=== PATIENT | male | born 1990 | race Two or more races ===

== ENCOUNTER 2022-12-28 10:04 | Emergency (ER) | payer BC ==
[~2022-12-28] VITALS: Ht 165.1 cm; Wt 63.5 kg
--- NOTE | 2022-12-28 10:18 | NUR ---
"My knee has been swollen x2wks worse now Hard to walk-Painful" pain 10/10 on pain scale
[2022-12-28] MEDS ORDERED: KETOROLAC TROMETHAMINE INJ 30 MG/ML VIAL IV ONE (10:30)
[2022-12-28] MEDS ORDERED: KETOROLAC TROMETHAMINE INJ 30 MG/ML VIAL ONE (10:34)
--- NOTE | 2022-12-28 10:41 | NUR ---
X RAY AT BEDSIDE
--- NOTE | 2022-12-28 10:47 | NUR ---
IV ESTABLISHED R AC 20G. LABS DRAWN AND COLLECTED AT BEDSIDE
[2022-12-28 10:59] LABS: BASOPHILS # (AUTO) 0.1 K/uL (0.0-0.2); BASOPHILS % (AUTO) 0.6 % (0.0-2.0); EOSINOPHILS % (AUTO) 0.2 % (0.0-6.0); HEMATOCRIT 41 % (39-51); HEMOGLOBIN 13.7 g/dL (13.5-17.5); LYMPHOCYTES # (AUTO) 1.1 K/uL (0.8-4.8); MEAN CORPUSCULAR HGB CONC 33 g/dl (31.0-36.0); MEAN CORPUSCULAR VOLUME 84 fL (80-96); MONOCYTES # (AUTO) 0.8 K/uL (0.1-1.30); MONOCYTES % (AUTO) 6.6 % (2.0-12.0); NEUTROPHILS # (AUTO) 10.2 K/uL (1.8-8.9); NEUTROPHILS % (AUTO) 83.6 % (43.0-81.0); PLATELET COUNT (AUTO) 260 K/uL (150-450); RED BLOOD CELL COUNT(AUTO) 4.87 MIL/uL (4.5-6.0); WHITE BLOOD COUNT (AUTO) 12.2 K/uL (4.3-11.0)
[2022-12-28 11:12] LABS: CALCIUM, SERUM 8.7 mg/dL (8.5-10.1); CREATININE 0.7 mg/dL (0.6-1.3)
[2022-12-28] MEDS ORDERED: INSULIN REGULAR, HUMAN 100 UNIT/ML 10 ML VIAL ONE (11:27)
[2022-12-28] MEDS ORDERED: IV NS 0.9% 1,000 ML IV ONE (11:30)
[2022-12-28] MEDS ORDERED: INSULIN REGULAR, HUMAN 100 UNIT/ML 10 ML VIAL SQ ONE (11:30)
[2022-12-28] MEDS ORDERED: METF-440 PO (13:05)
[2022-12-28] MEDS ORDERED: NAPR-1164 PO (13:05)
[2022-12-28 13:14] VITALS: BP 113/77
--- NOTE | 2022-12-28 13:14 | NUR ---
IV removed. Catheter intact and site benign. Pressure and 4x4 applied to site. No bleeding noted.Patient discharged to home in stable condition. Written and verbal after care instructions given. Patient verbalizes understanding of instruction.
[2022-12-28 13:44] LABS: C-REACTIVE PROTEIN 22.9 mg/dL (0.0-0.9)
--- NOTE | 2023-01-10 11:01 | NUR ---
ADDENDUM: STARTED 1000ML NORMAL SALINE ON 12/28/22 AT 1132 ON THE R AC 20G. NORMAL SALINE ENDED AT 1232. PT TOLERATED FLUIDS WELL.
== END 2022-12-28 13:15 | disposition home or self-care (01) ==
LOC: ER 10:04
DX: M25.462 Effusion, left knee (principal); E11.9 Type 2 diabetes mellitus without complications; Z79.899 Other long term (current) drug therapy
CPT/HCPCS: 99284; 96374; 96361; 73564; 85025; 80048; 85652; 36415; 86140; 96372; J1815; J1885; J7030

== ENCOUNTER 2022-12-29 20:53 | Inpatient (IN) | payer BC ==
[~2022-12-29] VITALS: Ht 165.1 cm; Wt 81.6 kg
[~2022-12-29 20:53] MED LIST: METF-440 PO; NAPR-1164 PO
--- NOTE | 2022-12-29 22:50 | NUR ---
DR FARHAT SIBLEY AT PT'S BEDSIDE
--- NOTE | 2022-12-29 22:50 | NUR ---
PT IN BED 12 TOLORATING ROOM AIR 98% A/O X4. C/O WORSENING LEFT KNEE PAIN WAS SEEN YESTERDAY FOR SAME CONDTION PT CLAIMS THE PAIN HAS GOTTEN WORSE AND Rx MEDS NOT RELIEVING PAIN. BED LOCKED IN LOWEST POSTION PARTER AT BEDSIDE. CONNECTED TO BEDSIDE MONITOR.
[2022-12-29 23:36] LABS: BASOPHILS % (AUTO) 0.1 % (0.0-2.0); EOSINOPHILS % (AUTO) 0.1 % (0.0-6.0); HEMATOCRIT 43 % (39-51); LYMPHOCYTES # (AUTO) 1.2 K/uL (0.8-4.8); MEAN CORPUSCULAR HGB CONC 32 g/dl (31.0-36.0); MEAN CORPUSCULAR VOLUME 88 fL (80-96); MONOCYTES # (AUTO) 1.2 K/uL (0.1-1.30); MONOCYTES % (AUTO) 7.9 % (2.0-12.0); NEUTROPHILS % (AUTO) 83.9 % (43.0-81.0); PLATELET COUNT (AUTO) 274 K/uL (150-450); RED BLOOD CELL COUNT(AUTO) 4.92 MIL/uL (4.5-6.0); WHITE BLOOD COUNT (AUTO) 15.5 K/uL (4.3-11.0)
[2022-12-30 00:06] LABS: CALCIUM, SERUM 9.7 mg/dL (8.5-10.1); CREATININE 0.6 mg/dL (0.6-1.3)
--- NOTE | 2022-12-30 01:00 | NUR ---
IV LFA #18G S/L; PATENT AND INTACT
--- NOTE | 2022-12-30 01:00 | NUR ---
COVID ANTIGEN SWAB COLLECTED AND SENT TO LAB
--- NOTE | 2022-12-30 01:08 | NUR ---
DR FARHAT SIBLEY AT PT'S BEDSIDE FOR L KNEE ARTHROSIS; PT SIGNED CONSENT FORM
--- NOTE | 2022-12-30 01:20 | NUR ---
L KNEE BODY FLUID DROPPED OFF TO LAB BY RN
[2022-12-30] MEDS ORDERED: IV NS 0.9% 1,000 ML BAG IV ONE (01:30)
--- NOTE | 2022-12-30 01:40 | NUR ---
CASEWORK SUPERVISOR AT PT'S BEDSIDE
[2022-12-30 02:04] LABS: ALANINE AMINOTRANSFERASE 23 U/L (12-78); ALKALINE PHOSPHATASE 150 U/L (46-116); ASPARTATE AMINOTRANSFERASE 23 U/L (15-37); BILIRUBIN,DIRECT 0.1 mg/dL (0.0-0.2); BILIRUBIN,TOTAL 0.5 mg/dL (0.2-1.0); TOTAL PROTEIN, SERUM 7.8 g/dL (6.4-8.2)
[2022-12-30 02:18] LABS: ALBUMIN 2.6 g/dL (3.4-5.0)
[2022-12-30] MEDS ORDERED: ONDANSETRON HCL/PF 4 MG/2 ML VIAL IVP PRN (02:30)
[2022-12-30] MEDS ORDERED: MAGNESIUM HYDROXIDE 30 ML UDC PO PRN (02:30)
[2022-12-30] MEDS ORDERED: DEXTROSE 50%-WATER 50 ML DISP.SYRIN IV PRN (02:30)
[2022-12-30] MEDS ORDERED: Z GUARD REMEDY 4 OZ OINT TP PRN (02:30)
[2022-12-30] MEDS ORDERED: MAG HYDROX/AL HYDROX/SIMETH 30 ML UDC PO PRN (02:30)
[2022-12-30] MEDS ORDERED: TEMAZEPAM 15 MG CAPSULE PO PRN (02:30)
[2022-12-30] MEDS ORDERED: MORPHINE SULFATE INJ 2 MG/ML DISP.SYRIN IV PRN (02:30)
[2022-12-30 05:34] LABS: BILIRUBIN,URINE NEGATIVE (NEGATIVE); COLOR,URINE YELLOW (YELLOW); LEUKOCYTE ESTERASE ,URINE NEGATIVE (NEGATIVE); NITRITE, URINE NEGATIVE (NEGATIVE); PH,URINE 5.5 (5.0-8.0); PROTEIN,URINE 1+ mg/dl (NEGATIVE); UGLUCOSE 2+ mg/dL (NEGATIVE); UROBILINOGEN,URINE 0.2 EU/dL (0.2)
[2022-12-30 05:38] LABS: BACTERIA,URINE Rare /HPF (None Seen); HYALINE CASTS, URINE Few /LPF (None Seen); RBC,URINE 0-2 /HPF (0-2); SQUAMOUS EPITHELIAL CELL,UR Few /HPF (None Seen); WBC,URINE 0-2 /HPF (0-3)
--- NOTE | 2022-12-30 07:45 | NUR ---
Patient AOx4 able to express his concerns. Discussed plan of care with patient, verbalized agreement. Patient with no signs of distress or discomfort.
--- NOTE | 2022-12-30 07:48 | NUR ---
BED ASSIGNED 323-1
--- NOTE | 2022-12-30 08:09 | NUR ---
Report given to Isaias RN/3 Noé. Patient clear to go to room 323
--- NOTE | 2022-12-30 08:45 | NUR ---
Patient received via [employer] Patient is A/O x4, breathing evenly and unlabored on RA. No signs of distress noted. Vitals: BP-129/86; HR-116; RR-20; T-98.6; SPO2-100. Patient described having pain only when left leg is moved. Skin assessment performed: Patient has patches of thick, red skin with silvery scales on various parts of the body but mostly on upper and lower extremities. 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 Patient revealed hx of Psoriasis and being treated regularly elsewhere. Patient has LFA IV line #18G., C/D/I. Patient was oriented to room and how to use call light. Safety measures put in placed, will continue to monitor the patient for JOHN.
--- NOTE | 2022-12-30 09:06 | NUR ---
WOUND CARE CONSULT: PT PRESENTS WITH PSORIASIS AND LEFT KNEE SWELLING, PRESENT ON ADMISSION. NO OPEN WOUNDS NOTED. DEFER TO PMD FOR POSSIBLE ORTHO CONSULT. WILL SEE PRN.
[2022-12-30] MEDS: PANTOPRAZOLE 40 MG VIAL IV SCH (09:16)
[2022-12-30] MEDS: BLOOD SUGAR DIAGNOSTIC 1 EACH STRIP IN SCH ×4 (09:28→23:00)
[2022-12-30] MEDS: INSULIN REGULAR, HUMAN 100 UNIT/ML 3 ML VIAL SQ PRN ×4 (10:18→23:01)
[2022-12-30] MEDS: VANCOMYCIN 1.25 GM in IV D5W 250 ML IV SCH ×2 (10:32→17:15)
[2022-12-30] MEDS: IV NS 0.9% 1,000 ML IV PRN (10:50)
[2022-12-30 14:19] LABS: ALBUMIN 2.2 g/dL (3.4-5.0); BILIRUBIN,TOTAL 0.7 mg/dL (0.2-1.0); CALCIUM, SERUM 8.8 mg/dL (8.5-10.1); CREATININE 0.5 mg/dL (0.6-1.3); POTASSIUM 3.9 mmol/L (3.5-5.1); TOTAL PROTEIN, SERUM 7.6 g/dL (6.4-8.2)
[2022-12-30] MEDS: ACETAMINOPHEN 325 MG TABLET PO PRN (14:30)
[2022-12-30 16:00] VITALS: BP 137/92
--- NOTE | 2022-12-30 18:44 | NUR ---
MS RN CLOSING NOTES PATIENT IN BED AWAKE A/O X 4. VERBALLY RESPONSIVE, ON ROOM AIR, BREATHING EVENLY AND UNLABORED, NO S/S OF DISTRESS AT THIS TIME. DENIES PAIN OR DISCOMFORT AT THIS TIME. FAMILY ON BEDSIDE. ALL DUE MEDICATIONS GIVEN ORDERED. ALL NEEDS MET. IV ACCESS AT LFA #18G SL, C/D/I. IVF AT 75ML/HR (PRN). SAFETY PROTOCOL IN PLACED AT ALL TIMES. WILL BE ENDORSED TO PM NURSE FOR JOHN.
--- NOTE | 2022-12-30 19:20 | NUR ---
RN Opening Notes Received pt in bed, awake, with visitors at bedside. AOx4, able to make needs known. On RA and tolerating well. No SOB noted. No s/sx of respiratory distress noted. IV access in LFA #18G running NS @ 75 mL/hr. Safety precautions in place: bed in lowest, locked position, siderails upX2, and brakes on. Table and call light within reach. All needs met at this time.
[2022-12-30] MEDS: HYDROCODONE/APAP 5/325MG TABLET PO PRN (19:24)
--- NOTE | 2022-12-30 19:24 | NUR ---
RN Notes Patient complaining of 8/10 pain but requests [place]. VS WNL.
[2022-12-30 20:00] VITALS: BP 138/88
[2022-12-30] MEDS: CEFTRIAXONE 1 G in IV D5W 50 ML IV SCH (20:07)
[2022-12-31] MEDS: VANCOMYCIN 1.25 GM in IV D5W 250 ML IV SCH ×3 (01:09→17:02)
[2022-12-31 06:10] LABS: BASOPHILS % (AUTO) 0.2 % (0.0-2.0); EOSINOPHILS % (AUTO) 0.2 % (0.0-6.0); HEMATOCRIT 38 % (39-51); HEMOGLOBIN 12.7 g/dL (13.5-17.5); LYMPHOCYTES # (AUTO) 0.9 K/uL (0.8-4.8); LYMPHOCYTES % (AUTO) 7.6 % (20.0-44.0); MEAN CORPUSCULAR HGB CONC 33 g/dl (31.0-36.0); MEAN CORPUSCULAR VOLUME 85 fL (80-96); MONOCYTES # (AUTO) 1.1 K/uL (0.1-1.30); MONOCYTES % (AUTO) 8.8 % (2.0-12.0); NEUTROPHILS # (AUTO) 10.2 K/uL (1.8-8.9); NEUTROPHILS % (AUTO) 83.2 % (43.0-81.0); PLATELET COUNT (AUTO) 244 K/uL (150-450); WHITE BLOOD COUNT (AUTO) 12.3 K/uL (4.3-11.0)
[2022-12-31 06:28] LABS: CALCIUM, SERUM 8.5 mg/dL (8.5-10.1); CREATININE 0.4 mg/dL (0.6-1.3); MAGNESIUM 1.8 mg/dL (1.8-2.4); POTASSIUM 3.4 mmol/L (3.5-5.1)
[2022-12-31] MEDS: BLOOD SUGAR DIAGNOSTIC 1 EACH STRIP IN SCH ×4 (06:30→21:18)
[2022-12-31] MEDS: HYDROCODONE/APAP 5/325MG TABLET PO PRN ×3 (06:30→21:08)
--- NOTE | 2022-12-31 06:30 | NUR ---
RN Notes Administered norco for pain per MD order.
[2022-12-31] MEDS: INSULIN REGULAR, HUMAN 100 UNIT/ML 3 ML VIAL SQ PRN ×4 (06:39→21:23)
--- NOTE | 2022-12-31 06:51 | NUR ---
RN Closing Notes Pt in bed, asleep, awakens to verbal stimuli. AOx4, able to make needs known. On RA and tolerating well. No SOB noted. No s/sx of respiratory distress noted. IV access in LFA #18G running NS @ 75 mL/hr. All orders carried out. All needs met. Pt kept clean and dry. Safety precautions in place: bed in lowest, locked position, siderails upX2, and brakes on. Table and call light within reach. Will endorse to oncoming shift for JOHN.
--- NOTE | 2022-12-31 07:25 | NUR ---
RN Opening Notes Received pt in bed, awake, AOx4, able to make needs known. On RA and tolerating well. No SOB noted. No s/sx of respiratory distress noted. IV access in LFA #18G running NS @ 75 mL/hr. Safety precautions in place: bed in lowest, locked position, siderails upX2, and brakes on. Table and call light within reach. All needs met at this time.
--- NOTE | 2022-12-31 07:34 | NUR ---
WOUND CARE CONSULT: RECEIVED ANOTHER CONSULT FOR SKIN CONDITION, PRESENT ON ADMISSION. PT STATES HAS PSORIASIS. DEFER TO PMD.
[2022-12-31 08:34] VITALS: BP 136/79
[2022-12-31] MEDS: PANTOPRAZOLE 40 MG VIAL IV SCH (09:21)
[2022-12-31] MEDS ORDERED: MORPHINE SULFATE INJ 4 MG/ML DISP.SYRIN IV PRN (10:00)
[2022-12-31] MEDS ORDERED: POTASSIUM CHLORIDE 20 MEQ TAB.PRT.SR PO ONE (10:00)
[2022-12-31] MEDS: IV NS 0.9% 1,000 ML IV PRN (10:39)
[2022-12-31] MEDS ORDERED: NEUTRA PHOS 1 POWD.PACKET PO ONE (11:00)
[2022-12-31 16:12] VITALS: BP 149/93
[2022-12-31] MEDS: ACETAMINOPHEN 325 MG TABLET PO PRN (18:36)
[2022-12-31] MEDS: CEFTRIAXONE 1 G in IV D5W 50 ML IV SCH (19:50)
[2022-12-31 20:00] VITALS: BP 141/83
--- NOTE | 2022-12-31 20:11 | NUR ---
MS RN CLOSING NOTES PATIENT IN BED AWAKE A/O X 4. VERBALLY RESPONSIVE, ON ROOM AIR, BREATHING EVENLY AND UNLABORED, NO S/S OF DISTRESS AT THIS TIME. DENIES PAIN OR DISCOMFORT AT THIS TIME. FAMILY WITH THE PATIENT AT THE BEDSIDE. ALL DUE MEDICATIONS GIVEN ORDERED. ALL NEEDS MET. IV ACCESS AT LFA #18G SL, C/D/I. IVF AT 75ML/HR (PRN). SAFETY PROTOCOL IN PLACED AT ALL TIMES. PATIENT ENDORSED TO PM NURSE FOR JOHN.
--- NOTE | 2022-12-31 21:08 | NUR ---
RN Notes Administered norco for pain per MD order. VS WNL.
[2023-01-01] MEDS: VANCOMYCIN 1.25 GM in IV D5W 250 ML IV SCH ×3 (01:59→18:13)
[2023-01-01] MEDS: IV NS 0.9% 1,000 ML IV PRN (05:41)
[2023-01-01 06:12] LABS: CALCIUM, SERUM 8.6 mg/dL (8.5-10.1); CREATININE 0.5 mg/dL (0.6-1.3); PHOSPHORUS 2.2 mg/dL (2.5-4.9); POTASSIUM 3.5 mmol/L (3.5-5.1)
[2023-01-01] MEDS: BLOOD SUGAR DIAGNOSTIC 1 EACH STRIP IN SCH ×4 (06:38→22:08)
[2023-01-01] MEDS: INSULIN REGULAR, HUMAN 100 UNIT/ML 3 ML VIAL SQ PRN ×4 (06:41→22:07)
--- NOTE | 2023-01-01 06:52 | NUR ---
RN Closing Notes Pt in bed, asleep, awakens to verbal stimuli. AOx4, able to make needs known. On RA and tolerating well. No SOB noted. No s/sx of respiratory distress noted. IV access in LFA #18G running NS @ 75 mL/hr. All needs met. All orders carried out. Pt kept clean and dry. Treated pain once during shift. Safety precautions in place: bed in lowest, locked position, siderails upX2, and brakes on. Table and call light within reach. Will endorse to oncoming shift for JOHN.
--- NOTE | 2023-01-01 07:30 | NUR ---
MS RN OPENING NOTE RECEIVED PATIENT IN BED, AWAKE. A/O X 4, ABLE TO MAKE NEEDS KNOWN. DENIES PAIN/DISCOMFORT AT THIS TIME. ON ROOM AIR, TOLERATING WELL. IV ACCESS ON RFA #20G WITH ONGOING NS AT 75ML/HR, INFUSING WELL. SAFETY MEASURES IMPLEMENTED: CALL LIGHT AND TABLE WITHIN EASY REACH, SIDE RAILS UP X 2, BED IN LOWEST LOCKED POSITION. WILL CONTINUE TO MONITOR.
[2023-01-01] MEDS: PANTOPRAZOLE 40 MG TABLET.DR PO SCH (07:46)
[2023-01-01 08:00] VITALS: BP 130/83
[2023-01-01] MEDS ORDERED: NEUTRA PHOS 1 POWD.PACKET PO ONE (09:30)
[2023-01-01] MEDS ORDERED: K PHOS NEUTRAL 250 MG TABLET PO ONE ×2 (10:00)
--- NOTE | 2023-01-01 11:30 | NUR ---
RN NOTE INFORMED DR. HERNANDEZ AND NISHI PERKINS FOR BLOOD CULTURE OF GRAM POSITIVE COCCI.
[2023-01-01] MEDS: HYDROCODONE/APAP 5/325MG TABLET PO PRN (15:38)
--- NOTE | 2023-01-01 15:48 | NUR ---
RN NOTE PATIENT VERBALIZED HIS LEFT LEG IS PAINFUL WITH SCALE OF 7/10, NORCO 5-325MG PO PRN GIVEN AT 1538, WILL CONTINUE TO MONITOR.
[2023-01-01 16:00] VITALS: BP 131/58
--- NOTE | 2023-01-01 16:15 | NUR ---
RN NOTES LAB CALLED THAT THERE IS NO SPECIMEN FOR SYNOVIAL CRYSTAL TEST, TUCKER NEGRON (YANNI) MADE AWARE.
--- NOTE | 2023-01-01 18:47 | NUR ---
MS RN CLOSING NOTE PATIENT RESTING IN BED, WITH RELATIVE AT BEDSIDE. A/O X 4, ABLE TO MAKE NEEDS KNOWN. DENIES PAIN/DISCOMFORT AT THIS TIME. ON ROOM AIR, TOLERATED WELL. IV ACCESS ON RFA #20G WITH ONGOING NS AT 75ML/HR, INFUSING WELL. NEEDS ATTENDED. SAFETY MEASURES IMPLEMENTED: CALL LIGHT AND TABLE WITHIN EASY REACH, SIDE RAILS UP X 2, BED IN LOWEST LOCKED POSITION. WILL ENDORSE JOHN TO MANAGEMENT TRAINEE.
--- NOTE | 2023-01-01 19:13 | NUR ---
MS RN OPENING NOTES: RECEIVED PATIENT AWAKE IN BED ACCOMPANIED BY FAMILY, BED IN LOW POSITION CALL LIGHTS WITHIN REACH, NO COMPLAIN OF PAIN AND DISCOMFORT AT THIS TIME, ON ROOM AIR SATURATING WELL, PATIENT IS A/O X4 SASHA TO MAKE NEEDS KNOWN, ON BED REST, IV LINE AT RFA#20 WITH ONGOING [id number] INFUSING WELL, PATIENT KEPT CLEAN AND DRY ALL NEED MET WILL CONTINUE TO MONITOR.
[2023-01-01 20:00] VITALS: BP_SYST 128; BP_SYST 139; BP_DIAS 70; BP_DIAS 83
[2023-01-01] MEDS: CEFTRIAXONE 1 G in IV D5W 50 ML IV SCH (20:01)
--- NOTE | 2023-01-02 00:15 | NUR ---
RN NOTE PATIENT CLAIMS TO HAVE DIFFICULTY BREATHING STATING "SEEMS LIKE I DO NOT HAVE ENOUGH AIR." PATIENT IS GIVEN OXYGEN VIA NASAL CANNULA 2LPM, KEPT HOB ELEVATED. WILL CONTINUE TO MONITOR.
[2023-01-02] MEDS: VANCOMYCIN 1.5 GM in IV D5W 500ml IV SCH ×3 (02:10→17:00)
[2023-01-02] MEDS: IV NS 0.9% 1,000 ML IV PRN ×2 (02:16→19:58)
[2023-01-02] MEDS: HYDROCODONE/APAP 5/325MG TABLET PO PRN ×3 (03:37→22:15)
--- NOTE | 2023-01-02 06:14 | NUR ---
RN CLOSING NOTES: RECEIVED PATIENT SLEEP IN BED COMFORTABLY, AROUSABLE TO VERBAL STIMULI, BED IN LOW POSITION CALL LIGHTS WITHIN REACH, NO COMPLAIN OF PAIN AND DISCOMFORT AT THIS TIME, ON ROOM AIR SATURATING WELL, PATIENT IS A/O X4 ABLE TO MAKE NEEDS KNOWN, AMBULATORY WITH CRUTCHES, PATIENT KEPT CLEAN AND DRY ALL NEEDS MET ENDORSE TO NCOMING SHIFT.
[2023-01-02] MEDS: INSULIN REGULAR, HUMAN 100 UNIT/ML 3 ML VIAL SQ PRN ×3 (06:50→16:58)
[2023-01-02] MEDS: BLOOD SUGAR DIAGNOSTIC 1 EACH STRIP IN SCH ×4 (06:53→22:00)
[2023-01-02 07:00] VITALS: BP 119/77
--- NOTE | 2023-01-02 07:15 | NUR ---
MS RN OPENING NOTE RECEIVED PATIENT LYING IN BED WITH BOTH LEGS SLIGHTLY ELEVATED. PT IS A/O X 4, [place] SPEAKING MOSTLY, ABLE TO MAKE NEEDS KNOWN. DENIES PAIN/DISCOMFORT AT THIS TIME. ON ROOM AIR, BREATHING WITHOUT ANY DIFFICULTY. WITH IV ACCESS ON RFA #20G PATENT AND FLUSHING WELL WITH RUNNING NS AT 75ML/HR. SAFETY MEASURES IN PLACE: BED IN LOWEST AND LOCKED POSITION, SIDE RAILS 2X. CALL LIGHT AND TABLE WITHIN EASY REACH. WILL CONTINUE TO MONITOR.
[2023-01-02] MEDS: PANTOPRAZOLE 40 MG TABLET.DR PO SCH (07:48)
[2023-01-02 07:59] LABS: CALCIUM, SERUM 8.7 mg/dL (8.5-10.1); CREATININE 0.5 mg/dL (0.6-1.3); PHOSPHORUS 2.9 mg/dL (2.5-4.9); POTASSIUM 3.4 mmol/L (3.5-5.1)
[2023-01-02] MEDS ORDERED: POTASSIUM CHLORIDE 20 MEQ TAB.PRT.SR PO ONE (10:00)
--- NOTE | 2023-01-02 10:16 | NUR ---
RN NOTES - GAVE PATIENT ICE PACK FOR HIS LEFT LEG PER HIS REQUEST
--- NOTE | 2023-01-02 10:46 | NUR ---
RN NOTES - UPDATED ADMITTING DX TO "LEFT KNEE CELLULITIS, SIRS" PATIENT DOESN'T QUALIFY FOR "SEPTIC ARTHRITIS" PER PHYSICIAN NOTES.
--- NOTE | 2023-01-02 15:05 | NUR ---
RN NOTES - PATIENT COMPLAINING OF 7-8 ACHING PAIN COMING FROM LEFT KNEE, PT IS REFUSING MORPHINE, ASKED FOR NORCO 5/325 MG. WILL ADMINISTER, WILL MONITOR.
[2023-01-02 16:00] VITALS: BP 126/78
[2023-01-02] MEDS: ACETAMINOPHEN 325 MG TABLET PO PRN (16:11)
--- NOTE | 2023-01-02 16:11 | NUR ---
ANN-MARIE NOTES - PATIENT COMPLAINING OF HEADACHE AT THIS MOMENT 12/27. WILL GIVE TYLENOL 650 MG ORDERED. TACHYCARDIC AT 125 BPM, ASYMPTOMATIC. Addendum: 01/02/23 at 1614 by DANICA DUNN RN PATIENT REFUSED IT THIS TIME SAYING HE WILL DIVERT HIMSELF INSTEAD
--- NOTE | 2023-01-02 16:49 | NUR ---
RN NOTES - CHECK PATIENT'S PULSE RATE - 120-125 BPM, PATIENT IS ASYMPTOMATIC, DENIES CHEST PAIN NOR DISCOMFORT, AFEBRILE.
--- NOTE | 2023-01-02 18:34 | NUR ---
MS RN CLOSING NOTES PATIENT LYING IN BED WITH BOTH LEGS SLIGHTLY ELEVATED. PATIENT HAS VISITORS AT BEDSIDE, A/O X 4. STABLE ON ROOM AIR, PAIN IS CONTROLLED DURING THIS TIME. STILL WITH IV ACCESS ON RFA #20G PATENT AND FLUSHING WELL WITH RUNNING NS AT 75ML/HR AND VANCOMYCIN IVPB. ALL DUE MEDS GIVEN, ALL NEEDS MET. SAFETY MEASURES MAINTAINED: BED IN LOWEST AND LOCKED POSITION, SIDE RAILS 2X. CALL LIGHT AND TABLE WITHIN EASY REACH. WILL ENDORSE TO STAVE AND BOLT EQUALIZER NURSE.
--- NOTE | 2023-01-02 19:05 | NUR ---
MS RN OPENING NOTES RECEIVED PATIENT AWAKE LYING IN BED WITH BOTH LEGS SLIGHTLY ELEVATED. PATIENT HAS VISITORS AT BEDSIDE, A/O X 4. ABLE TO MAKE NEEDS KNOWN. STABLE ON ROOM AIR, NOT IN PAIN AT THIS TIME. IV ACCESS ON RFA #20G NOTED TO BE PATENT AND INTACT INFUSING NS AT 75ML/HR. SAFETY MEASURES MAINTAINED: BED IN LOWEST AND LOCKED POSITION, SIDE RAILS 2X. CALL LIGHT AND TABLE WITHIN EASY REACH.
[2023-01-02] MEDS: CEFTRIAXONE 1 G in IV D5W 50 ML IV SCH (19:42)
[2023-01-02 20:33] VITALS: BP 115/76
--- NOTE | 2023-01-02 22:00 | NUR ---
RN NOTES PATIENT REFUSED BLOOD SUGAR CHECK. BEEN OFFERING 3 TIMES. PATIENT WAS GIVEN EDUCATION ABOUT THE IMPORTANCE OF BLOOD SUGAR MONITORING. PATIENT STATED "CHECK IT IN THE MORNING"
--- NOTE | 2023-01-02 22:15 | NUR ---
RN NOTE PATIENT IS IN PAIN SCALE OF 7/10. NORCO 5 IS GIVEN ACCORDING TO PAIN SCALE. WILL REASSESS PAIN RELIEF.
--- NOTE | 2023-01-02 22:45 | NUR ---
RN NOTE REASSESSED PATIENT. PAIN IS RELIEVED SCALE OF 2/10.
[2023-01-03] MEDS: VANCOMYCIN 1.5 GM in IV D5W 500ml IV SCH ×3 (02:05→13:28)
[2023-01-03] MEDS: BLOOD SUGAR DIAGNOSTIC 1 EACH STRIP IN SCH ×3 (06:44→17:25)
[2023-01-03] MEDS: INSULIN REGULAR, HUMAN 100 UNIT/ML 3 ML VIAL SQ PRN ×3 (06:46→17:29)
--- NOTE | 2023-01-03 06:52 | NUR ---
MS RN CLOSING NOTE PATIENT SLEEPING IN BED EASILY AWAKEN WHEN CALLED BY NAME. BOTH LEGS SLIGHTLY ELEVATED. A/O X 4. ABLE TO MAKE NEEDS KNOWN. WITH NASAL CANNULA 2LPM TOLERATING WELL. NOT IN PAIN AT THIS TIME. IV ACCESS ON RFA #20G NOTED TO BE PATENT AND INTACT INFUSING NS AT 75ML/HR. PATIENT URINE OUTPUT 1,700CC. NO BM. ALL DUE MEDICATIONS GIVEN, ALL NEEDS ARE MET. MADE SURE PATIENT IS CLEAN AND COMFORTABLE. SAFETY MEASURES MAINTAINED: BED IN LOWEST AND LOCKED POSITION, SIDE RAILS 2X. CALL LIGHT AND TABLE WITHIN EASY REACH. ENDORSED TO NEXT SHIFT NURSE FOR CONTINUITY OF CARE.
[2023-01-03 07:07] LABS: CALCIUM, SERUM 8.5 mg/dL (8.5-10.1); CREATININE 0.5 mg/dL (0.6-1.3); POTASSIUM 3.9 mmol/L (3.5-5.1)
--- NOTE | 2023-01-03 07:18 | NUR ---
MS RN OPENING NOTE RECEIVED PATIENT LYING IN BED WITH BOTH LEGS SLIGHTLY ELEVATED. PT IS A/O X 4, [place] SPEAKING MOSTLY, ABLE TO MAKE NEEDS KNOWN. ON ROOM AIR, BREATHING WITHOUT ANY DIFFICULTY AT THIS TIME. DENIES PAIN/DISCOMFORT. WITH IV ACCESS ON RFA #20G PATENT AND FLUSHING WELL WITH RUNNING NS AT 75ML/HR. SAFETY MEASURES IN PLACE: BED IN LOWEST AND LOCKED POSITION, SIDE RAILS 2X. CALL LIGHT AND TABLE WITHIN EASY REACH. WILL CONTINUE TO MONITOR.
[2023-01-03] MEDS: PANTOPRAZOLE 40 MG TABLET.DR PO SCH (07:58)
[2023-01-03 08:19] VITALS: BP 122/72
[2023-01-03 08:48] LABS: BASOPHILS % (AUTO) 0.1 % (0.0-2.0); EOSINOPHILS % (AUTO) 0.5 % (0.0-6.0); HEMATOCRIT 36 % (39-51); HEMOGLOBIN 11.6 g/dL (13.5-17.5); LYMPHOCYTES # (AUTO) 1.1 K/uL (0.8-4.8); LYMPHOCYTES % (AUTO) 8.6 % (20.0-44.0); MEAN CORPUSCULAR HGB CONC 33 g/dl (31.0-36.0); MEAN CORPUSCULAR VOLUME 87 fL (80-96); MONOCYTES # (AUTO) 0.9 K/uL (0.1-1.30); MONOCYTES % (AUTO) 6.7 % (2.0-12.0); NEUTROPHILS % (AUTO) 84.1 % (43.0-81.0); PLATELET COUNT (AUTO) 265 K/uL (150-450); WHITE BLOOD COUNT (AUTO) 13.1 K/uL (4.3-11.0)
--- NOTE | 2023-01-03 09:27 | NUR ---
RN NOTES - VANCOMYCIN 1.5 MG IN D5W 500 ML JUST RECEIVED.
--- NOTE | 2023-01-03 10:25 | NUR ---
RN NOTES - DR HERNANDEZ AT BEDSIDE, ORDERED CT SCAN OF THE LEFT KNEE W/O CONTRAST TO RULE OUT FASCIITIS - STAT. CARRIED OUT.
--- NOTE | 2023-01-03 10:37 | NUR ---
RN NOTES - PATIENT HAS BEEN TAKEN TO CT SCAN VIA HIS BED BY 2 TECHNICIANS. PT IS STABLE AND ON ROOM AIR.
[2023-01-03 16:16] VITALS: BP 128/82
[2023-01-03] MEDS: ACETAMINOPHEN 325 MG TABLET PO PRN (17:30)
--- NOTE | 2023-01-03 19:30 | NUR ---
MS RN CLOSING NOTES PATIENT LYING IN BED WITH BOTH LEGS SLIGHTLY ELEVATED. PATIENT HAS VISITORS AT BEDSIDE - FAMILY IS DISCUSSING GOING HOME AGAINST MEDICAL ADVICE. PT IS A/O X 4. STABLE ON ROOM AIR, PAIN IS CONTROLLED DURING THIS TIME. STILL WITH IV ACCESS ON RFA #20G PATENT AND FLUSHING WELL WITH RUNNING NS AT 75ML/HR. ALL DUE MEDS GIVEN, ALL NEEDS MET. SAFETY MEASURES MAINTAINED: BED IN LOWEST AND LOCKED POSITION, SIDE RAILS 2X. CALL LIGHT AND TABLE WITHIN EASY REACH. ENDORSED TO DENTAL EQUIPMENT INSTALLER AND SERVICER NURSE.
--- NOTE | 2023-01-03 19:40 | NUR ---
MS RN NOTE RECEIVED PT LYING IN BED WITH FAMILY MEMBERS AT BEDSIDE. PT A/O X4, ABLE TO MAKE NEEDS KNOWN. NO SOB, NO RESPIRATORY DISTRESS NOTED. PT WANTS TO LEAVE AMA. AMA FORM PROVIDED TO PT. PT IS EXPLAINED ALL THE INCONVENIENCES OF LEAVING AMA. FORM IS SIGNED BY PT. PYROMETER TEMPERATURE REGULATOR JASWINDER SANDOVAL IS CALLED, AND NOTIFIED. CHARGE NURSE MITCHELL AWARE. ARM BAND, AND IV ACCESS REMOVED. PT LEFT IN WHEEL CHAIR, IN STABLE CONDITION, WITH ALL HIS BELONGINGS. FAMILY MEMBERS PRESENT TO TAKE PT HOME. PT IS WHEELED OUT BY OPTICAL INSTRUMENTS SUPERVISOR.
== END 2023-01-03 20:00 | disposition left against medical advice (07) | DRG 383 ==
LOC: ER 20:54 → MED 12-30 08:20
PROVIDERS: ADMIT Internal Medicine; ATTEND Internal Medicine
PROC: 0S9D3ZX Drainage of Left Knee Joint, Percutaneous Approach, Diagnostic (ICD-10-PCS; principal; 2022-12-30)
DX: L03.116 Cellulitis of left lower limb (principal); E87.20 Acidosis, unspecified; E87.1 Hypo-osmolality and hyponatremia; D72.829 Elevated white blood cell count, unspecified; E11.65 Type 2 diabetes mellitus with hyperglycemia; E87.6 Hypokalemia; M25.462 Effusion, left knee; L40.9 Psoriasis, unspecified; Z79.84 Long term (current) use of oral hypoglycemic drugs; M70.42 Prepatellar bursitis, left knee
CPT/HCPCS: 36415; 71045-TC; 73700-TC; 80048-TC; 80053-TC; 80076-TC; 80202-TC; 81001; 82962-TC; 83605-TC; 83735-TC; 84100-TC; 84484-TC; 85025-TC; 85652-TC; 85730-TC; 86140-TC; 87040-TC; 87081-TC; 87086-TC; 89051-TC; 97112-TC; 97116-TC; 97530-TC; A4223; A6253; C9113; C9803; G0378; J0696; J1815; J3370; J7030; J7060